=== PATIENT | female | born 1960 | race Caucasian/White ===

== ENCOUNTER 2020-03-06 15:17 | Emergency (ER) | payer BC ==
[2020-03-06] MEDS ORDERED: Sodium Chloride 0.9% 1,000 ML IV ONE (15:20)
--- NOTE | 2020-03-06 15:43 | CT ---
Head CT Technique: Multiple axial sections through the brain were obtained. Intravenous contrast was not utilized. Comparison: No prior intracranial imaging. Findings: Ventricles along with basal cisterns and sulci over the convexities are within normal limits for the patient's age. No abnormal parenchymal densities are seen. No evidence of intracranial hemorrhage. No midline shift or mass-effect is seen. No acute calvarial finding is seen. Visualized mastoid sinuses and paranasal sinuses show nothing acute. Impression: 1. Nothing acute is appreciated on noncontrast head CT exam. Diagnostic code #1 This report was dictated in MDT
--- NOTE | 2020-03-06 15:58 | CR ---
Chest: Portable view of the chest was obtained. Comparison: No prior chest imaging is available. Heart size and mediastinum are normal. Lungs are clear with no acute parenchymal change. Bony structures are grossly intact. Impression: 1. Nothing acute is seen on portable chest x-ray. Diagnostic code #1 This report was dictated in MDT
--- NOTE | 2020-03-06 16:00 | EDM.PDOC ---
ED HPI GENERAL MEDICAL PROBLEM - General Chief Complaint: Neuro Symptoms/Deficits Stated Complaint: STROKE CODE Time Seen by Provider: 03/06/20 15:18 Source of Information: Reports: Patient, EMS - History of Present Illness INITIAL COMMENTS - FREE TEXT/NARRATIVE: 59-year-old female with a history of hypertension and hypothyroidism who is presenting with now improving profound weakness lightheadedness and diminished responsiveness. The patient reports that while this is likely the most severe episode that is happened to her for the last year approximately every other month she will have a similar episode. She says that it always starts when she is sitting down prior to eating or is started eating. And it starts with a diffuse prickling and itching in her throat then up into her face and down into her hands and feet and it is associated with erythema of her skin. It is followed rapidly then by profound shortness of breath profound nausea and generalized weakness. There is no chest pain there is no palpitations no abdominal pain but has noted significant nausea. The symptoms seem to be self- limited she has not sought medical care for them in the past. She states that she is feeling better and better as time goes on. EMS reports that on arrival the patient was hypoxic to the mid 80s on room air she was also quite hypotensive with a systolic in the 70s. She was given 500 cc fluid bolus. For them initially she seemed to have left-sided deficits and so stroke code was called by them. ED ROS GENERAL - Review of Systems Review Of Systems: See Below Free Text/Narrative/Comment: General: No fever. Skin: Per HPI Eyes: No vision problems. ENT: No sore throat. Neck: No neck stiffness. Respiratory: Per HPI Cardiac: No chest pain. Gastrointestinal: No nausea, vomiting or abdominal pain. Urinary: No dysuria. Musculoskeletal: No myalgias/arthralgias. Neurologic: No headache. ED EXAM, NEURO - Physical Exam Exam: See Below Text/Narrative:: General Appearance: No acute distress, appears comfortable Skin: No rash HEENT: Normocephalic/atraumatic, sclera anicteric, mucous membranes moist Neck: Normal range of motion Chest and Lungs: Bilateral breath sounds, clear to auscultation Cardiovascular: Regular rate and rhythm, no murmur Abdomen: Soft, non-tender Back: Normal Musculoskeletal: No edema or tenderness Neurologic: Awake, alert, no obvious deficits, moving all extremities, strength 5 out of 5 extraocular movements intact NIH stroke scale score conducted by nursing is 0. Psychiatric: Appropriate, cooperative Course - Vital Signs Last Recorded V/S: Last Vital Signs Temp 99.1 F 03/06/20 15:19 Pulse 87 03/06/20 15:19 Resp 17 03/06/20 15:19 BP 138/82 03/06/20 15:19 Pulse Ox 96 03/06/20 15:19 - Orders/Labs/Meds Orders: Active Orders 24 hr Category Date Time Status EKG 12 Lead [EKG Documentation Completion] [RC] STAT Care 03/06/20 16:00 Active Labs: Laboratory Tests 03/06/20 03/06/20 03/06/20 Range/Units 16:02 16:02 16:02 WBC 18.38 H (4.0-11.0) K/uL RBC 5.79 (4.30-5.90) M/uL Hgb 17.3 H (12.0-16.0) g/dL Hct 50.6 H (36.0-46.0) % MCV 87.4 (80.0-98.0) fL MCH 29.9 (27.0-32.0) pg MCHC 34.2 (31.0-37.0) g/dL RDW Std Deviation 46.3 (28.0-62.0) fl RDW Coeff of Rosemarie 14 (11.0-15.0) % Plt Count 232 (150-400) K/uL MPV 10.20 (7.40-12.00) fL Neut % (Auto) 78.0 (48.0-80.0) % Lymph % (Auto) 14.2 L (16.0-40.0) % Hopkins % (Auto) 7.6 (0.0-15.0) % Eos % (Auto) 0.1 (0.0-7.0) % Baso % (Auto) 0.1 (0.0-1.5) % Neut # (Auto) 14.3 H (1.4-5.7) K/uL Lymph # (Auto) 2.6 H (0.6-2.4) K/uL Hopkins # (Auto) 1.4 H (0.0-0.8) K/uL Eos # (Auto) 0.0 (0.0-0.7) K/uL Baso # (Auto) 0.0 (0.0-0.1) K/uL Nucleated RBC % 0.0 /100WBC Nucleated RBCs # 0 K/uL Lactate 3.3 H* (0.20-2.00) mmol/L Sodium 132 L (136-145) mmol/L Potassium 3.8 (3.5-5.1) mmol/L Chloride 97 L (98-107) mmol/L Carbon Dioxide 20.0 L (21.0-32.0) mmol/L BUN 19 H (7.0-18.0) mg/dL Creatinine 1.6 H (0.6-1.0) mg/dL Est Cr Clr Drug Dosing 36.36 mL/min Estimated GFR (MDRD) 32.9 ml/min Glucose 141 H (74-106) mg/dL Calcium 9.2 (8.5-10.1) mg/dL Total Bilirubin 0.5 (0.2-1.0) mg/dL AST 35 (15-37) IU/L ALT 54 (14-63) IU/L Alkaline Phosphatase 119 H (46-116) U/L Troponin I < 0.050 (0.000-0.056) ng/mL Total Protein 8.4 H (6.4-8.2) g/dL Albumin 4.1 (3.4-5.0) g/dL Globulin 4.3 H (2.6-4.0) g/dL Albumin/Globulin Ratio 1.0 (0.9-1.6) 03/06/20 03/06/20 Range/Units 18:06 18:06 WBC (4.0-11.0) K/uL RBC (4.30-5.90) M/uL Hgb (12.0-16.0) g/dL Hct (36.0-46.0) % MCV (80.0-98.0) fL MCH (27.0-32.0) pg MCHC (31.0-37.0) g/dL RDW Std Deviation (28.0-62.0) fl RDW Coeff of Rosemarie (11.0-15.0) % Plt Count (150-400) K/uL MPV (7.40-12.00) fL Neut % (Auto) (48.0-80.0) % Lymph % (Auto) (16.0-40.0) % Hopkins % (Auto) (0.0-15.0) % Eos % (Auto) (0.0-7.0) % Baso % (Auto) (0.0-1.5) % Neut # (Auto) (1.4-5.7) K/uL Lymph # (Auto) (0.6-2.4) K/uL Hopkins # (Auto) (0.0-0.8) K/uL Eos # (Auto) (0.0-0.7) K/uL Baso # (Auto) (0.0-0.1) K/uL Nucleated RBC % /100WBC Nucleated RBCs # K/uL Lactate 2.3 H* (0.20-2.00) mmol/L Sodium 136 (136-145) mmol/L Potassium 4.6 (3.5-5.1) mmol/L Chloride 102 (98-107) mmol/L Carbon Dioxide 22.2 (21.0-32.0) mmol/L BUN 19 H (7.0-18.0) mg/dL Creatinine 1.5 H (0.6-1.0) mg/dL Est Cr Clr Drug Dosing 38.78 mL/min Estimated GFR (MDRD) 35.4 ml/min Glucose 121 H (74-106) mg/dL Calcium 8.6 (8.5-10.1) mg/dL Total Bilirubin (0.2-1.0) mg/dL AST (15-37) IU/L ALT (14-63) IU/L Alkaline Phosphatase (46-116) U/L Troponin I (0.000-0.056) ng/mL Total Protein (6.4-8.2) g/dL Albumin (3.4-5.0) g/dL Globulin (2.6-4.0) g/dL Albumin/Globulin Ratio (0.9-1.6) Meds: Medications Discontinued Medications Generic Name Dose Route Start Last Admin Trade Name Freq PRN Reason Stop Dose Admin Sodium Chloride 1,000 mls @ 1,000 mls/hr 03/06/20 15:20 03/06/20 16:14 Normal Saline IV 03/06/20 16:19 1,000 mls/hr .Bolus ONE Administration Lactated Ringer's 1,000 mls @ 1,000 mls/hr 03/06/20 16:16 03/06/20 17:16 Ringers, Lactated IV 03/06/20 17:15 1,000 mls/hr .BOLUS ONE Administration Departure - Departure Time of Disposition: 18:37 Disposition: Home, Self-Care 01 Condition: Good Clinical Impression: Near syncope, Acute kidney injury - Discharge Information Instructions: Near-Syncope, [id number] Forms: ED Department Discharge Additional Instructions: Today your blood pressure dropped low and it caused you to almost pass out. The CT scan of your head was normal and it did not show any bleeding in your brain. Your blood work showed that you had a very mild elevation in your kidney function. This is common in people of your age and does not necessarily represent true kidney disease. It improved with IV fluid. However, it is important that this blood work be repeated by her primary care doctor. As we discussed this explains the majority of your symptoms. However, the fact that you have these episodes with some regularity and the fact that they always start with itching and redness is unusual for syncope and near syncope. If you develop any worsening symptoms in the next few days such as chest pain trouble breathing or it occurs again I encourage you to call your doctor right away or return to the emergency department. Regardless please call your primary care doctor's office on Monday to discuss this and arrange follow-up. The following information is given to patients seen in the emergency department who are being discharged to home. This information is to outline your options for follow-up care. We provide all patients seen in our emergency department with a follow-up referral. The need for follow-up, as well as the timing and circumstances, are variable depending upon the specifics of your emergency department visit. If you don't have a primary care physician on staff, we will provide you with a referral. We always advise you to contact your personal physician following an emergency department visit to inform them of the circumstance of the visit and for follow-up with them and/or the need for any referrals to a consulting specialist. The emergency department will also refer you to a specialist when appropriate. This referral assures that you have the opportunity for follow-up care with a specialist. All of these measure are taken in an effort to provide you with optimal care, which includes your follow-up. Under all circumstances we always encourage you to contact your private physician who remains a resource for coordinating your care. When calling for follow-up care, please make the office aware that this follow-up is from your recent emergency room visit. If for any reason you are refused follow-up, please contact the [facility] Emergency Department at and asked to speak to the emergency department charge nurse. Sepsis Event Note - Evaluation Sepsis Screening Result: No Definite Risk - Focused Exam Vital Signs: Vital Signs Temp Pulse Resp BP Pulse Ox 03/06/20 15:19 99.1 F 87 17 138/82 96 Date Exam was Performed: 03/06/20 Time Exam was Performed: 18:44 - My Orders Last 24 Hours: My Active Orders 03/06/20 16:00 EKG 12 Lead [EKG Documentation Completion] [RC] STAT - Assessment/Plan Last 24 Hours: My Active Orders 03/06/20 16:00 EKG 12 Lead [EKG Documentation Completion] [RC] STAT Assessment:: 59-year-old female presenting with hypotension hypoxia altered mental status. The symptoms are all consistent with a hypotension that was found by paramedics. Her vital signs are improving as are her symptoms. Her NIH stroke scale score is 0 with a rapid improvement the associated hypotension all of this argues against CVA. I canceled the stroke code after my initial assessment and after the NIH stroke scale score was found to be 0. CT scan of the brain and chest x-ray are unremarkable blood work is pending at this time EKG is pending as well. The itching and erythema almost suggest an allergic response or anaphylaxis. However, the fact that it resolved spontaneously would be inconsistent with his etiology. A mast cell release syndrome would explain the symptoms. However, the patient is somewhat old for this to present primarily in the episode also seems quite brief and self resolving which is not necessarily consistent with this. No chest pain no concern for ACS given spontaneous improvement I do not have a clinical concern for ACS or PE in this patient. The time course and the recurrent symptoms are also inconsistent with this. If the remainder of the evaluation is unremarkable and the patient continues to clinically improve and her vital signs remained stable she can go home to follow-up with her primary care provider. 1850: Patient symptoms have continued to improve she is ambulatory with a steady gait she states that she feels well. Repeat blood work shows an improvement in her lactate modest improvement in her chemistry. Given the improvement in symptoms I do not believe that the elevated white count or lactate reflect acute sepsis or clinical presentation does not seem consistent with this. Strict return precautions were discussed and understood she will follow-up with her primary care provider.
[2020-03-06] MEDS ORDERED: Lactated Ringers 1,000 ML IV ONE (16:16)
[2020-03-06 16:35] LABS: BLOOD UREA NITROGEN,BUN 19 mg/dL (7.0-18.0); CHLORIDE,CL 97 mmol/L (98-107); GLUCOSE RANDOM 141 mg/dL (74-106); POTASSIUM,K 3.8 mmol/L (3.5-5.1); SODIUM,NA 132 mmol/L (136-145)
[2020-03-06 18:27] LABS: CARBON DIOXIDE,CO2 22.2 mmol/L (21.0-32.0); POTASSIUM,K 4.6 mmol/L (3.5-5.1)
== END 2020-03-06 18:57 | disposition home or self-care (01) ==
LOC: MW.ED 15:17
DX: N17.9 Acute kidney failure, unspecified (principal); I10 Essential (primary) hypertension; E03.9 Hypothyroidism, unspecified
CPT/HCPCS: 36415; 70450; 71045; 80048; 80053; 83605; 84484; 85025; 93005; 96360; 96361; 99285; J7030; J7120

== ENCOUNTER 2021-08-24 10:50 | Emergency (ER) | payer BC, OTHER ==
--- NOTE | 2021-08-24 11:00 | EDM.PDOC ---
ED HPI GENERAL MEDICAL PROBLEM - General Chief Complaint: Cardiovascular Problem Stated Complaint: EMS Time Seen by Provider: 08/24/21 10:50 Source of Information: Reports: Patient, EMS History Limitations: Reports: No Limitations - History of Present Illness INITIAL COMMENTS - FREE TEXT/NARRATIVE: 60-year-old female past medical history hypothyroidism, 2-year history of lump o n sides of neck that comes and goes presents for an episode of lump on side of neck. Patient notes that she has these "spells" every so often usually once every few months. She is getting this worked up and notes that she saw an ENT physician in [place] who noted some abnormal blood work and wrote outpatient orders for an ultrasound and CT scan and DEXA scan. She did have the ultrasound but is uncertain of the results. She is scheduled for CT imaging and DEXA scan this Monday. She was referred to [facility] for further work-up after the results of the scans. She is uncertain what abnormal blood work was done in [place]. She notes that today she could "feel the spell coming on". She feels hot, flush, turns red. She then notes swelling in her bilateral mandibular face and neck with associated shortness of breath and dizziness. She was given 50 mg of Benadryl by EMS prior to arrival and notes that the swelling is much improved. She states that she currently feels tired but otherwise well feeling. She denies any chest pain or shortness of breath. - Related Data Allergies Allergy/AdvReac Type Severity Reaction Status Date / Time aspirin Allergy Nausea Verified 08/24/21 10:52 Home Meds: Home Meds Clindamycin HCl 450 mg PO TID 10 Days #90 capsule 08/24/21 [Rx] Clindamycin HCl 450 mg PO TID 10 Days #90 capsule 08/24/21 [Rx] Past Medical History HEENT History: Reports: None Cardiovascular History: Reports: Hypertension Respiratory History: Reports: None Gastrointestinal History: Reports: None Genitourinary History: Reports: None BODY DESIGN CHECKER History: Reports: Musculoskeletal History: Reports: None Neurological History: Reports: None Psychiatric History: Reports: Depression Endocrine/Metabolic History: Reports: Hypothyroidism Hematologic History: Reports: None Immunologic History: Reports: None Oncologic (Cancer) History: Reports: None Dermatologic History: Reports: None - Infectious Disease History Infectious Disease History: Reports: Measles - Past Surgical History Head Surgeries/Procedures: Reports: None HEENT Surgical History: Reports: Tonsillectomy Social & Family History - Family History Family Medical History: No Pertinent Family History - Tobacco Use Tobacco Use Status *Q: Current Every Day Tobacco User Years of Tobacco use: 40 Packs/Tins Daily: 0.7 - Caffeine Use Caffeine Use: Reports: Coffee - Recreational Drug Use Recreational Drug Use: Yes Drug Use in Last 12 Months: Yes Recreational Drug Type: Reports: Marijuana/Hashish Recreational Drug Use Frequency: Weekly ED ROS GENERAL - Review of Systems Review Of Systems: Comprehensive ROS is negative, except as noted in HPI. ED EXAM, GENERAL - Physical Exam Exam: See Below Exam Limited By: No Limitations General Appearance: Alert, WD/WN, No Apparent Distress Ears: Hearing Grossly Normal Throat/Mouth: Normal Inspection, Normal Oropharynx, Normal Voice, No Airway Compromise Head: Atraumatic, Normocephalic Neck: Other (swelling of L mandibular face extending to lateral neck, trachea is midline) Respiratory/Chest: No Respiratory Distress, Lungs Clear, Normal Breath Sounds, No Accessory Muscle Use Cardiovascular: Normal Peripheral Pulses, Regular Rate, Rhythm Extremities: Normal Inspection Neurological: Alert, Normal Cognition, Normal Gait Psychiatric: Normal Affect, Normal Mood Skin Exam: Warm, Dry, Intact, Normal Color #1 Interpretation EKG Date: 08/24/21 Time: 10:50 Rhythm: NSR Rate (Beats/Min): 79 Marshall: Normal P-Wave: Present QRS: Normal ST-T: Normal QT: Prolonged (503) OK/PQ Interval: 165 EKG Interpretation Comments: NSR with frequent PVCs; 3x PVC noted on EKG Course - Vital Signs Last Recorded V/S: Last Vital Signs Temp 96.8 F L 08/24/21 10:53 Pulse 73 08/24/21 10:53 Resp 20 08/24/21 10:53 BP 106/88 08/24/21 10:53 Pulse Ox 95 08/24/21 10:53 - Orders/Labs/Meds Orders: Active Orders 24 hr Category Date Time Status Clindamycin Phosphate [Cleocin] 300 mg Med 08/24/21 14:09 Active Sodium Chloride 0.9% [Normal Saline] 50 ml IV ONETIME Saline Lock Insert [OM.PC] Stat Oth 08/24/21 11:08 Ordered Medication Orders Clindamycin Phosphate 300 mg/ (Sodium Chloride) 52 mls @ 100 mls/hr IV ONETIME ONE Stop: 08/24/21 14:40 Labs: Laboratory Tests 08/24/21 08/24/21 Range/Units 11:31 11:31 WBC 8.71 (4.0-11.0) K/uL RBC 5.16 (4.30-5.90) M/uL Hgb 15.3 (12.0-16.0) g/dL Hct 44.7 (36.0-46.0) % MCV 86.6 (80.0-98.0) fL MCH 29.7 (27.0-32.0) pg MCHC 34.2 (31.0-37.0) g/dL RDW Std Deviation 43.5 (28.0-62.0) fl RDW Coeff of Rosemarie 14 (11.0-15.0) % Plt Count 218 (150-400) K/uL MPV 10.50 (7.40-12.00) fL Neut % (Auto) 68.2 (48.0-80.0) % Lymph % (Auto) 24.5 (16.0-40.0) % [place] % (Auto) 7.1 (0.0-15.0) % Eos % (Auto) 0.1 (0.0-7.0) % Baso % (Auto) 0.1 (0.0-1.5) % Neut # (Auto) 5.9 H (1.4-5.7) K/uL Lymph # (Auto) 2.1 (0.6-2.4) K/uL [place] # (Auto) 0.6 (0.0-0.8) K/uL Eos # (Auto) 0.0 (0.0-0.7) K/uL Baso # (Auto) 0.0 (0.0-0.1) K/uL Nucleated RBC % 0.0 /100WBC Nucleated RBCs # 0 K/uL Sodium 139 (136-145) mmol/L Potassium 3.9 (3.5-5.1) mmol/L Chloride 101 (98-107) mmol/L Carbon Dioxide 26.4 (21.0-32.0) mmol/L BUN 16 (7.0-18.0) mg/dL Creatinine 1.0 (0.6-1.0) mg/dL Est Cr Clr Drug Dosing 42.43 mL/min Estimated GFR (MDRD) 56.4 ml/min Glucose 123 H (74-106) mg/dL Calcium 8.4 L (8.5-10.1) mg/dL Total Bilirubin 0.3 (0.2-1.0) mg/dL AST 20 (15-37) IU/L ALT 30 (14-63) IU/L Alkaline Phosphatase 105 (46-116) U/L Troponin I < 0.050 (0.000-0.056) ng/mL Total Protein 7.4 (6.4-8.2) g/dL Albumin 3.5 (3.4-5.0) g/dL Globulin 3.9 (2.6-4.0) g/dL Albumin/Globulin Ratio 0.9 (0.9-1.6) Free T4 1.24 (0.76-1.46) ng/dL TSH, Ultra Sensitive 0.23 L (0.36-3.74) uIU/mL Meds: Medications Generic Name Dose Route Start Last Admin Trade Name Freq PRN Reason Stop Dose Admin Clindamycin Phosphate 300 mg/ 52 mls @ 100 mls/hr 08/24/21 14:09 Sodium Chloride IV 08/24/21 14:40 ONETIME ONE Discontinued Medications Generic Name Dose Route Start Last Admin Trade Name Freq PRN Reason Stop Dose Admin Iopamidol 75 ml 08/24/21 12:50 08/24/21 12:51 Iopamidol 755 Mg/Ml 500 Ml Multipack Bottle IVPUSH 08/24/21 12:51 75 ml ONETIME STA Administration Methylprednisolone Sodium Succinate 125 mg 08/24/21 11:08 08/24/21 11:33 Methylprednisolone Sodium Succinate 125 Mg/2 Ml Sdv IVPUSH 08/24/21 11:09 125 mg ONETIME ONE Administration - Re-Assessments/Exams Free Text/Narrative Re-Assessment/Exam: 08/24/21 11:11 We will get labs. Will get CT imaging of the maxillary face and neck. 08/24/21 14:13 CT imaging shows inflammatory changes in the parotid gland which could represent a Warthin's tumor or necrotic lymph node. Infection cannot be ruled out. Will give a dose of clindamycin as well as clindamycin to go home on. Patient is an established patient of Dr. Deleon and I recommend that she follow-up with the CT imaging results for definitive plan. CT report does recommend percutaneous tissue sampling for definitive diagnosis. Patient understands. Departure - Departure Time of Disposition: 14:14 Disposition: Home, Self-Care 01 Condition: Good Clinical Impression: Parotid abscess Prescriptions: Clindamycin HCl 450 mg PO TID 10 Days #90 capsule Instructions: Parotitis Forms: ED Department Discharge Additional Instructions: Your CT scan shows evidence of inflammatory changes in your parotid gland. The parotid gland is your salivary gland in your face. There is concern for a Warthin's tumor which is a benign salivary gland tumor. He will need to follow- up with the ENT doctor for biopsy. I did place you on antibiotics in the meantime. They are at [facility] The following information is given to patients seen in the emergency department who are being discharged to home. This information is to outline your options for follow-up care. We provide all patients seen in our emergency department with a follow-up referral. The need for follow-up, as well as the timing and circumstances, are variable depending upon the specifics of your emergency department visit. If you don't have a primary care physician on staff, we will provide you with a referral. We always advise you to contact your personal physician following an emergency department visit to inform them of the circumstance of the visit and for follow-up with them and/or the need for any referrals to a consulting sp ecialist. The emergency department will also refer you to a specialist when appropriate. This referral assures that you have the opportunity for follow-up care with a specialist. All of these measure are taken in an effort to provide you with optimal care, which includes your follow-up. Under all circumstances we always encourage you to contact your private physician who remains a resource for coordinating your care. When calling for follow-up care, please make the office aware that this follow-up is from your recent emergency room visit. If for any reason you are refused follow-up, please contact the [facility] Emergency Department at and asked to speak to the emergency department charge nurse. Please follow up with your primary care physician. If you do not have a primary care physician, see below: [facility] [address] [place], [place] [id number] [facility] [address] [place], [place] [id number] [facility] [address] [place] [id number] Sepsis Event Note (ED) - Evaluation Sepsis Screening Result: No Definite Risk - Focused Exam Vital Signs: Vital Signs Temp Pulse Resp BP Pulse Ox 08/24/21 10:53 96.8 F L 73 20 106/88 95 - My Orders Last 24 Hours: My Active Orders 08/24/21 11:08 Saline Lock Insert [OM.PC] Stat 08/24/21 14:09 Clindamycin Phosphate [Cleocin] 300 mg Sodium Chloride 0.9% [Normal Saline] 50 ml IV ONETIME - Assessment/Plan Last 24 Hours: My Active Orders 08/24/21 11:08 Saline Lock Insert [OM.PC] Stat 08/24/21 14:09 Clindamycin Phosphate [Cleocin] 300 mg Sodium Chloride 0.9% [Normal Saline] 50 ml IV ONETIME
[2021-08-24] MEDS ORDERED: methylPREDNISolone Sodium Succinate 125 MG/2 ML SDV IVPUSH ONE (11:08)
[2021-08-24 12:15] LABS: BLOOD UREA NITROGEN,BUN 16 mg/dL (7.0-18.0); CARBON DIOXIDE,CO2 26.4 mmol/L (21.0-32.0); CHLORIDE,CL 101 mmol/L (98-107); GLUCOSE RANDOM 123 mg/dL (74-106); POTASSIUM,K 3.9 mmol/L (3.5-5.1); SODIUM,NA 139 mmol/L (136-145)
[2021-08-24] MEDS ORDERED: Iopamidol 755 MG/ML 500 ML Multipack Bottle IVPUSH STA (12:50)
--- NOTE | 2021-08-24 14:04 | CT ---
Indication: On-and off swelling of the left parotid in face/neck x2 years Technique: Volumetric multidetector CT images of the cervical soft tissues were obtained after the administration of low osmolar intravenous contrast. 75 cc Isovue 370 low osmolar intravenous contrast Comparison: CT head March 06, 2020 Findings: The partially visualized brain parenchyma is normal in attenuation without evidence of abnormal enhancement. There is minimal mucosal thickening seen within the paranasal sinuses. The mastoid air cells are clear. The nasopharynx is unremarkable. The fossae of Rosenmuller are clear. The oropharynx is unremarkable. The hypopharynx is clear. There is demonstration of moderate enhancement and ill-defined hyperdensity within the left parotid gland with demonstration of a somewhat rim enhancing cystic lesion measuring 1.5 x 0.5 centimeters in greatest dimension. There is additional mildly heterogeneous appearance of the right parotid gland. There is demonstration of a circumscribed cystic mass within the tail of the right parotid gland measuring 2.3 x 1.8 centimeters in greatest dimension. The vocal folds are nonthickened with symmetrical appearance. The thyroid gland is normal in attenuation. There are scattered somewhat reactive cervical lymph nodes without definite evidence of pathologic appearing lymph node. Atherosclerotic calcifications are appreciated within the bilateral carotid bifurcations. Otherwise, the cervical vasculature is grossly unremarkable with a dominant right internal jugular vein. There is biapical interstitial prominence and air trapping without evidence of dense consolidation. The cervical vertebral body heights are grossly maintained with moderate multilevel degenerative disc disease. There is moderate multilevel facet arthrosis. Impression: Demonstration of enlargement and heterogeneous appearance of the left parotid gland with multiple ill-defined areas of enhancement/hyperdensity. There is additional somewhat rim enhancing fluid containing mass lesion within the central inferior left parotid measuring 1.5 x 0.5 centimeters. Overall these findings are concerning for developing infectious and/or inflammatory changes with demonstration intraglandular sialocele versus developing intra parotid abscess. Findings could represent sequela of infectious or inflammatory sialoadenitis. There is additional incidental note made of a large circumscribed mass within the tail of the right parotid which may represent an additional cystic mass lesion of the parotid gland such as a Warthin`s tumor. Consider further evaluation with repeat CT of the soft tissues of the neck and/or focal ultrasound for improved characterization of cystic lesion in the bilateral parotid glands. Additional consideration for percutaneous tissue sampling of dominant mass in the inferior right parotid is recommended. Please note that all CT scans at this facility use dose modulation, iterative reconstruction, and/or weight-based dosing when appropriate to reduce radiation dose to as low as reasonably achievable. Dictated by Kwabena Castañeda MD @ 08/24/2021 2:03:21 PM (Electronically Signed)
--- NOTE | 2021-08-24 14:09 | CT ---
Indication: On-and off swelling of the left parotid/face and neck x2 years Technique: Volumetric multidetector CT images of the orbital and facial soft tissues were obtained after the administration of low osmolar intravenous contrast. 75 cc Isovue 370 low osmolar intravenous contrast Comparison: None available. Findings: The partially visualized brain parenchyma is normal in attenuation without evidence of abnormal enhancement. The globes and extra-ocular muscles are unremarkable. There is no significant periorbital soft tissue swelling. The retrobulbar fat is unremarkable without evidence of inflammatory change or fluid collection. There is minimal mucosal thickening seen within the paranasal sinuses. The mastoid air cells are clear. The nasopharynx is unremarkable. The fossae of Rosenmuller are clear. There is demonstration of heterogeneous hyperdensity/enhancement of the left parotid gland with mild superficial inflammatory changes and thickening of the platysma along the inferior margin. There is demonstration of a tubular rim enhancing lesion within the inferior left parotid measuring 1.4 x 0.6 centimeters in greatest dimension. There is demonstration of a cystic appearing mass within the inferior aspect of the right parotid measuring 2.3 x 1.4 centimeters with additional somewhat heterogeneous appearance. There is mild intra glandular prominence of the bilateral submandibular ducts without evidence of obstructing calcified silo lift. There are reactive cervical lymph nodes without significant pathologically enlarged lymph node. The facial osseus structures are grossly intact without acute osseus abnormality. Impression: 1. Demonstration of a heterogeneous, hyperdense/enhancing left parotid gland with mild pericardial or inflammatory change and demonstration of a tubular rim enhancing lesion in the inferior parotid gland measuring 1.4 centimeters. Overall, these findings likely represent sequela of infectious and/or inflammatory changes of the parotid consistent with parotiditis. A developing small intraglandular abscess versus a intraglandular sialocele is not excluded. 2. Demonstration of a 2.3 centimeter mass centered in the inferior aspect of the right parotid gland with a circumscribed margin and somewhat peripheral thickened soft tissue rim which could represent a cystic mass such is a Warthin`s tumor and/or a centrally necrotic lymph node. Further evaluation of this lesion with ultrasound and/or percutaneous tissue sampling is recommended for definitive diagnosis. Please note that all CT scans at this facility use dose modulation, iterative reconstruction, and/or weight-based dosing when appropriate to reduce radiation dose to as low as reasonably achievable. Dictated by Kwabena Castañeda MD @ 08/24/2021 2:08:03 PM (Electronically Signed)
[2021-08-24] MEDS ORDERED: Clindamycin Phosphate in D5W 300 MG in Premix Bag 1 BAG IV ONE ×2 (14:30)
== END 2021-08-24 15:11 | disposition home or self-care (01) ==
LOC: MW.ED 10:50
DX: L02.11 Cutaneous abscess of neck (principal); I10 Essential (primary) hypertension; E03.9 Hypothyroidism, unspecified; Z88.8 Allergy status to other drugs, medicaments and biological substances; Z72.0 Tobacco use
CPT/HCPCS: 70487; 70491; 80053; 84439; 84443; 84484; 85025; 93005; 96365; 96375; 99284; J2930; J3490; Q9967

== ENCOUNTER 2022-01-31 11:49 | Emergency (ER) | payer BC ==
[2022-01-31] MEDS ORDERED: Sodium Chloride 0.9% 1,000 ML IV ONE (12:18)
[2022-01-31 13:10] LABS: BLOOD UREA NITROGEN,BUN 21 mg/dL (7.0-18.0); CARBON DIOXIDE,CO2 23.2 mmol/L (21.0-32.0); CHLORIDE,CL 98 mmol/L (98-107); GLUCOSE RANDOM 160 mg/dL (74-106); POTASSIUM,K 3.6 mmol/L (3.5-5.1); SODIUM,NA 133 mmol/L (136-145)
== END 2022-01-31 13:49 | disposition home or self-care (01) ==
LOC: MW.ED 11:49
DX: R56.9 Unspecified convulsions (principal); I10 Essential (primary) hypertension; E03.9 Hypothyroidism, unspecified; F32.A Depression, unspecified; E78.00 Pure hypercholesterolemia, unspecified; Z79.899 Other long term (current) drug therapy; Z88.6 Allergy status to analgesic agent
CPT/HCPCS: 36415; 70450; 80053; 83605; 84484; 85025; 93005; 99285; J7030

== ENCOUNTER 2023-03-18 06:50 | Emergency (ER) | payer BC ==
[2023-03-18] MEDS ORDERED: Alum Hydro/Mag Hydro/Simeth XS 15 ML, Lidocaine 2% 5 ML PO ONE ×2 (07:21)
[2023-03-18] MEDS ORDERED: Nitroglycerin 0.4 MG Tab.SL SL ONE (07:21)
[2023-03-18 07:28] LABS: BASOPHILS PERCENT AUTO 0.1 % (0.0-1.5); HEMATOCRIT 40.4 % (36.0-46.0); HEMOGLOBIN 13.8 g/dL (12.0-16.0); LYMPHOCYTES ABSOLUTE AUTO 1.4 K/uL (0.6-2.4); LYMPHOCYTES PERCENT AUTO 14.1 % (16.0-40.0); MEAN CORPUSCULAR HEMOGLOBIN 29.7 pg (27.0-32.0); MEAN CORPUSCULAR HGB CONC 34.2 g/dL (31.0-37.0); MEAN CORPUSCULAR VOLUME 86.9 fL (80.0-98.0); MONOCYTES ABSOLUTE AUTO 0.4 K/uL (0.0-0.8); NEUTROPHILS ABSOLUTE AUTO 8.2 K/uL (1.4-5.7); NEUTROPHILS PERCENT AUTO 81.8 % (48.0-80.0); NRBC ABSOLUTE 0 K/uL; PLATELET COUNT,PLT 231 K/uL (150-400); RED BLOOD CELL COUNT 4.65 M/uL (4.30-5.90); WHITE BLOOD CELL COUNT,WBC 10.07 K/uL (4.0-11.0)
[2023-03-18 07:37] LABS: INR < 0.93 (0.86-1.11)
[2023-03-18 07:41] LABS: A/G RATIO 0.8 (0.9-1.6); ALBUMIN 3.4 g/dL (3.4-5.0); BILIRUBIN TOTAL 0.2 mg/dL (0.2-1.0); CALCIUM 9.8 mg/dL (8.5-10.1); CARBON DIOXIDE,CO2 22.9 mmol/L (21.0-32.0); EST CRCL DRUG DOSING (CG) 49.72 mL/min; MAGNESIUM 1.8 mg/dL (1.8-2.4); POTASSIUM,K 4.2 mmol/L (3.5-5.1); PROTEIN TOTAL,TP 7.5 g/dL (6.4-8.2)
[2023-03-18] MEDS ORDERED: Lactated Ringers 1,000 ML IV SCH (07:45)
[2023-03-18] MEDS ORDERED: cefTRIAXone 1 GM in Sodium Chloride 0.9% 50 ML IV ONE (07:47)
[2023-03-18 08:07] LABS: BASE EXCESS VENOUS 0.3 (-2.0-3.0); PH,VENOUS 7.47 (7.31-7.41)
[2023-03-18] MEDS ORDERED: Heparin Sodium 5,000 Units/ML Vial IVPUSH ONE (08:08)
[2023-03-18] MEDS ORDERED: Aspirin 81 MG Tab.Chew PO ONE (08:08)
[2023-03-18 08:11] LABS: CORONAVIRUS COVID-19 NAA NEGATIVE (NEGATIVE)
[2023-03-18] MEDS ORDERED: Furosemide 40 MG/4 ML VIAL IVPUSH ONE (08:11)
[2023-03-18] MEDS ORDERED: Heparin Sodium/0.45% NaCl 500 ML IV SCH (08:15)
[2023-03-18 08:20] LABS: INFLUENZA A NAA NEGATIVE (NEGATIVE); INFLUENZA B NAA NEGATIVE (NEGATIVE)
[2023-03-18 08:21] LABS: LACTIC ACID 1.4 mmol/L (0.4-2.0)
[2023-03-18] MEDS ORDERED: Ondansetron 4 MG/2 ML SDV ONE (08:40)
[2023-03-18] MEDS ORDERED: Ondansetron 4 MG/2 ML SDV IVPUSH ONE (08:57)
[2023-03-18] MEDS ORDERED: Norepinephrine Bit/D5W Premix 250 ML IV SCH (09:00)
== END 2023-03-18 10:22 ==
LOC: MW.ED 06:50
DX: I21.9 Acute myocardial infarction, unspecified (principal); I10 Essential (primary) hypertension; E03.9 Hypothyroidism, unspecified; Z88.8 Allergy status to other drugs, medicaments and biological substances; Z79.899 Other long term (current) drug therapy; Z20.822 Contact with and (suspected) exposure to COVID-19
CPT/HCPCS: 0240U; 36415; 51702; 71045; 80053; 82803; 83605; 83690; 83735; 83880; 84484; 85025; 85610; 85730; 86850; 86900; 86901; 87040; 93005; 94660; 96365; 96366; 96367; 96375; 96376; 99285; A9270; J0696; J1644; J1940; J2405; J3490; J7120; 93010; 99291; 99292

== ENCOUNTER 2023-04-02 21:54 | Inpatient (IN) | payer BC ==
[2023-04-02] MEDS ORDERED: Aluminum Hydroxide/Magnesium Hydroxide/Simethicone XS Susp 30 ML Cup PO ONE (22:18)
[2023-04-02] MEDS ORDERED: Famotidine 20 MG/2 ML SDV IVPUSH ONE (22:18)
[2023-04-02 22:43] LABS: BASE EXCESS VENOUS -2.5 (-2.0-3.0); BASOPHILS PERCENT AUTO 0.3 % (0.0-1.5); EOSINOPHILS PERCENT AUTO 0.4 % (0.0-7.0); HEMATOCRIT 34.6 % (36.0-46.0); HEMOGLOBIN 11.8 g/dL (12.0-16.0); LYMPHOCYTES ABSOLUTE AUTO 2.5 K/uL (0.6-2.4); LYMPHOCYTES PERCENT AUTO 27.6 % (16.0-40.0); MEAN CORPUSCULAR HEMOGLOBIN 30.1 pg (27.0-32.0); MEAN CORPUSCULAR HGB CONC 34.1 g/dL (31.0-37.0); MEAN CORPUSCULAR VOLUME 88.3 fL (80.0-98.0); MONOCYTES ABSOLUTE AUTO 0.7 K/uL (0.0-0.8); MONOCYTES PERCENT AUTO 8.1 % (0.0-15.0); NEUTROPHILS ABSOLUTE AUTO 5.8 K/uL (1.4-5.7); NEUTROPHILS PERCENT AUTO 63.6 % (48.0-80.0); PH,VENOUS 7.42 (7.31-7.41); PLATELET COUNT,PLT 338 K/uL (150-400); RED BLOOD CELL COUNT 3.92 M/uL (4.30-5.90)
[2023-04-02 23:02] LABS: D-DIMER QUANTITATIVE 22.69 mg/L FEU (0.0-0.50); INR 0.98 (0.86-1.11); PTT,PARTIAL THROMBOPLSTIN TIME 26.2 SEC (23.9-30.7)
[2023-04-02 23:10] LABS: A/G RATIO 0.8 (0.9-1.6); ALBUMIN 2.9 g/dL (3.4-5.0); BILIRUBIN TOTAL 0.3 mg/dL (0.2-1.0); CREATININE 1.2 mg/dL (0.6-1.0); EST CRCL DRUG DOSING (CG) 41.44 mL/min; MAGNESIUM 1.6 mg/dL (1.8-2.4); POTASSIUM,K 3.1 mmol/L (3.5-5.1); PROTEIN TOTAL,TP 6.7 g/dL (6.4-8.2)
[2023-04-02] MEDS ORDERED: Magnesium Sulfate/Water 2 GM in Premix Bag 1 BAG IV ONE (23:30)
[2023-04-02] MEDS ORDERED: Sodium Chloride 0.9% 250 ML IV ONE (23:45)
[2023-04-02] MEDS: Potassium Chloride 100 ML IV SCH (23:57)
[2023-04-03] MEDS ORDERED: Iopamidol 755 MG/ML 500 ML Multipack Bottle IVPUSH ONE (00:08)
[2023-04-03] MEDS ORDERED: Azithromycin 500 MG in Sodium Chloride 0.9% 250 ML IV ONE (01:48)
[2023-04-03] MEDS ORDERED: Furosemide 40 MG/4 ML VIAL IVPUSH ONE (01:48)
[2023-04-03] MEDS ORDERED: cefTRIAXone 1 GM in Sodium Chloride 0.9% 50 ML IV ONE (01:49)
[2023-04-03 02:34] LABS: CORONAVIRUS COVID-19 NAA NEGATIVE (NEGATIVE); INFLUENZA A NAA NEGATIVE (NEGATIVE); INFLUENZA B NAA NEGATIVE (NEGATIVE)
[2023-04-03] MEDS: Potassium Chloride 100 ML IV SCH (02:48)
[2023-04-03] MEDS ORDERED: Ondansetron 4 MG/2 ML SDV IVPUSH ONE (03:34)
[2023-04-03 05:55] LABS: BASOPHILS PERCENT AUTO 0.2 % (0.0-1.5); EOSINOPHILS PERCENT AUTO 0.2 % (0.0-7.0); HEMATOCRIT 37.3 % (36.0-46.0); HEMOGLOBIN 12.5 g/dL (12.0-16.0); LYMPHOCYTES PERCENT AUTO 19.6 % (16.0-40.0); MEAN CORPUSCULAR HEMOGLOBIN 29.5 pg (27.0-32.0); MEAN CORPUSCULAR HGB CONC 33.5 g/dL (31.0-37.0); MONOCYTES ABSOLUTE AUTO 0.7 K/uL (0.0-0.8); MONOCYTES PERCENT AUTO 6.8 % (0.0-15.0); NEUTROPHILS ABSOLUTE AUTO 7.5 K/uL (1.4-5.7); NEUTROPHILS PERCENT AUTO 73.2 % (48.0-80.0); PLATELET COUNT,PLT 361 K/uL (150-400); RED BLOOD CELL COUNT 4.24 M/uL (4.30-5.90); WHITE BLOOD CELL COUNT,WBC 10.27 K/uL (4.0-11.0)
[2023-04-03 06:21] LABS: CREATININE 1.2 mg/dL (0.6-1.0); EST CRCL DRUG DOSING (CG) 41.44 mL/min
[2023-04-03] MEDS ORDERED: Midodrine 5 MG Tab PO SCH (09:30)
[2023-04-03] MEDS: Ticagrelor 90 MG Tab PO SCH ×2 (11:19→20:21)
[2023-04-03] MEDS: Midodrine 5 MG Tab PO SCH (16:27)
[2023-04-03] MEDS: Torsemide 20 MG Tab PO SCH (16:27)
[2023-04-03] MEDS: Acetaminophen 325 MG Tab PO PRN ×2 (17:06→23:47)
[2023-04-04 06:13] LABS: BASOPHILS PERCENT AUTO 0.2 % (0.0-1.5); EOSINOPHILS PERCENT AUTO 0.1 % (0.0-7.0); HEMATOCRIT 35.5 % (36.0-46.0); LYMPHOCYTES ABSOLUTE AUTO 1.8 K/uL (0.6-2.4); LYMPHOCYTES PERCENT AUTO 18.2 % (16.0-40.0); MEAN CORPUSCULAR HEMOGLOBIN 29.6 pg (27.0-32.0); MEAN CORPUSCULAR HGB CONC 33.8 g/dL (31.0-37.0); MEAN CORPUSCULAR VOLUME 87.7 fL (80.0-98.0); MONOCYTES ABSOLUTE AUTO 0.8 K/uL (0.0-0.8); MONOCYTES PERCENT AUTO 7.8 % (0.0-15.0); NEUTROPHILS ABSOLUTE AUTO 7.2 K/uL (1.4-5.7); NEUTROPHILS PERCENT AUTO 73.7 % (48.0-80.0); PLATELET COUNT,PLT 305 K/uL (150-400); RED BLOOD CELL COUNT 4.05 M/uL (4.30-5.90); WHITE BLOOD CELL COUNT,WBC 9.83 K/uL (4.0-11.0)
[2023-04-04 06:30] LABS: CALCIUM 8.8 mg/dL (8.5-10.1); CARBON DIOXIDE,CO2 20.7 mmol/L (21.0-32.0); CREATININE 1.3 mg/dL (0.6-1.0); EST CRCL DRUG DOSING (CG) 38.25 mL/min; POTASSIUM,K 3.6 mmol/L (3.5-5.1)
[2023-04-04] MEDS: Midodrine 5 MG Tab PO SCH (06:36)
[2023-04-04] MEDS: Acetaminophen 325 MG Tab PO PRN (06:41)
[2023-04-04] MEDS: Ticagrelor 90 MG Tab PO SCH (08:19)
[2023-04-04] MEDS ORDERED: Docusate Sodium 100 MG Cap PO PRN (08:23)
[2023-04-04] MEDS ORDERED: Potassium Chloride 20 MEQ Tab.ER PO SCH (08:30)
[2023-04-04] MEDS ORDERED: Magnesium Oxide 400 MG Tab PO SCH (09:00)
[2023-04-04] MEDS ORDERED: Aspirin 81 MG Tab.Chew PO SCH (09:00)
[2023-04-04] MEDS ORDERED: Venlafaxine 75 MG Cap.ER PO SCH (09:00)
[2023-04-04] MEDS: Torsemide 20 MG Tab PO SCH (09:49)
[2023-04-04] MEDS ORDERED: Colchicine 0.6 MG Tab PO SCH (10:45)
[2023-04-04] MEDS ORDERED: Midodrine 5 MG Tab PO SCH (11:30)
[2023-04-05] MEDS ORDERED: Levothyroxine 100 MCG Tab PO SCH (07:30)
== END 2023-04-04 12:05 | DRG 194 ==
LOC: MW.ED 21:54 → MW.MS 04-03 02:33
PROVIDERS: ADMIT Internal Medicine; ATTEND Internal Medicine
DX: I11.0 Hypertensive heart disease with heart failure (principal); I50.23 Acute on chronic systolic (congestive) heart failure; I44.1 Atrioventricular block, second degree; I25.10 Atherosclerotic heart disease of native coronary artery without angina pectoris; I21.4 Non-ST elevation (NSTEMI) myocardial infarction; F32.A Depression, unspecified; E03.9 Hypothyroidism, unspecified; F17.210 Nicotine dependence, cigarettes, uncomplicated; N17.9 Acute kidney failure, unspecified; I95.9 Hypotension, unspecified; Z79.899 Other long term (current) drug therapy; Z95.5 Presence of coronary angioplasty implant and graft; Z79.82 Long term (current) use of aspirin; Z90.89 Acquired absence of other organs; Z79.890 Hormone replacement therapy; Z88.6 Allergy status to analgesic agent
CPT/HCPCS: 0240U; 36415; 71045; 71045-26; 71275; 71275-26; 80048; 80053; 82803; 83690; 83735; 83880; 84484; 85025; 85379; 85610; 85730; 93005; 93010; 96365; 96366; 96368; 99222; 99239; 99285; 99285-25; A9270-GY; J0456; J0696; J1940; J2405; J3475; J3480; J3490; J7050; Q9967

== ENCOUNTER 2023-04-10 01:18 | Emergency (ER) | payer BC ==
[2023-04-10] MEDS ORDERED: Furosemide 40 MG/4 ML VIAL IVPUSH ONE (01:28)
[2023-04-10 01:38] LABS: BASOPHILS PERCENT AUTO 0.2 % (0.0-1.5); EOSINOPHILS ABSOLUTE AUTO 0.1 K/uL (0.0-0.7); EOSINOPHILS PERCENT AUTO 0.6 % (0.0-7.0); HEMATOCRIT 30.3 % (36.0-46.0); HEMOGLOBIN 10.5 g/dL (12.0-16.0); LYMPHOCYTES ABSOLUTE AUTO 2.1 K/uL (0.6-2.4); LYMPHOCYTES PERCENT AUTO 26.3 % (16.0-40.0); MEAN CORPUSCULAR HEMOGLOBIN 30.2 pg (27.0-32.0); MEAN CORPUSCULAR HGB CONC 34.7 g/dL (31.0-37.0); MEAN CORPUSCULAR VOLUME 87.1 fL (80.0-98.0); MONOCYTES ABSOLUTE AUTO 0.5 K/uL (0.0-0.8); MONOCYTES PERCENT AUTO 6.3 % (0.0-15.0); NEUTROPHILS ABSOLUTE AUTO 5.4 K/uL (1.4-5.7); NEUTROPHILS PERCENT AUTO 66.6 % (48.0-80.0); NRBC ABSOLUTE 0 K/uL; PLATELET COUNT,PLT 235 K/uL (150-400); RED BLOOD CELL COUNT 3.48 M/uL (4.30-5.90); WHITE BLOOD CELL COUNT,WBC 8.06 K/uL (4.0-11.0)
[2023-04-10 01:39] LABS: PH,VENOUS 7.49 (7.31-7.41)
[2023-04-10 02:05] LABS: A/G RATIO 0.7 (0.9-1.6); ALBUMIN 2.9 g/dL (3.4-5.0); BILIRUBIN TOTAL 0.5 mg/dL (0.2-1.0); CALCIUM 8.5 mg/dL (8.5-10.1); CARBON DIOXIDE,CO2 19.7 mmol/L (21.0-32.0); CREATININE 1.2 mg/dL (0.6-1.0); EST CRCL DRUG DOSING (CG) 41.44 mL/min; MAGNESIUM 2.1 mg/dL (1.8-2.4); POTASSIUM,K 3.2 mmol/L (3.5-5.1)
[2023-04-10] MEDS ORDERED: Potassium Chloride 20 MEQ Tab.ER PO ONE (02:20)
== END 2023-04-10 06:07 ==
LOC: MW.ED 01:18
DX: I11.0 Hypertensive heart disease with heart failure (principal); I50.21 Acute systolic (congestive) heart failure; J96.01 Acute respiratory failure with hypoxia; I25.119 Atherosclerotic heart disease of native coronary artery with unspecified angina pectoris; I25.2 Old myocardial infarction; E03.9 Hypothyroidism, unspecified; Z88.8 Allergy status to other drugs, medicaments and biological substances; Z79.82 Long term (current) use of aspirin; Z79.899 Other long term (current) drug therapy; Z79.02 Long term (current) use of antithrombotics/antiplatelets
CPT/HCPCS: 36415; 71045; 80053; 82803; 83735; 83880; 84484; 85025; 85610; 85730; 93005; 96374; 99285; A9270; J1940; 93010; 99291